=== PATIENT | female | born 2000 | race Caucasian/White ===

== ENCOUNTER 2022-10-28 05:42 | Emergency (ER) | payer OTHER, MEDICAID, SELFPAY ==
--- NOTE | 2022-10-28 05:48 | ED_ITS ---
HPI - General Adult General Chief complaint: Dental/Oral Stated complaint: teeth absecess in mouth Time Seen by Provider: 10/28/22 05:48 Source: patient Mode of arrival: Ambulatory Limitations: no limitations History of Present Illness HPI narrative: 22-year-old female who is here for evaluation of which she states is a left- sided dental abscess. States she started noticing the swelling unless side of her face a couple days ago. Overnight she did take some leftover Keflex that she had at home. No problems swallowing. No problems breathing. Related Data Home Medications Medication Instructions Recorded Confirmed DM HYDROBROM/PSE HCL (#ROBITUSSIN ##0 12/16/10 PEDIATRIC COUGH & COLD 7.5 MG/5 M) Previous Rx's Medication Instructions Recorded clindamycin HCl 300 mg capsule 300 mg PO Q6H 7 days #28 caps 10/28/22 Allergies Allergy/AdvReac Type Severity Reaction Status Date / Time Penicillins Allergy Verified 10/28/22 05:55 Review of Systems Constitutional Constitutional: Reports system reviewed and no additional complaints, except as documented ENT Ears, Nose, Mouth, and Throat: Reports system reviewed and no additional compl aints, except as documented Respiratory Respiratory: Reports system reviewed and no additional complaints, except as documented Integumentary/Breasts Skin/Breast: Reports system reviewed and no additional complaints, except as documented Exam Initial Vital Signs Initial Vital Signs: Vital Signs Pulse Rate 92 H 10/28/22 05:50 Blood Pressure 109/68 10/28/22 05:50 Pulse Oximetry 100 10/28/22 05:50 HENMT Mouth: oral mucosae normal Teeth and gingiva: poor dentition Throat: posterior oropharynx normal Neck Other: Moderate swelling left-sided mandibular region. Skin Other: No redness or erythema over the swelling the left-sided mandibular region. Course Orders Ordered: Discontinued Medications Clindamycin HCl (Clindamycin 150 Mg Capsule) 300 mg PO NOW ONE Stop: 10/28/22 05:53 Vital Signs Vital signs: Vital Signs - 8 hr 10/28/22 05:51 10/28/22 05:50 10/28/22 05:50 Temperature 98 F Pulse Rate 85 92 H Respiratory Rate 18 Blood Pressure 109/68 109/68 Pulse Oximetry 100 100 Oxygen Delivery Method Room Air Medical Decision Making [facility] Narrative Medical decision making narrative: Patient has a physical exam that is consistent with a dental abscess. There is no defined abscess seen intraoral that would be amenable to drainage here in the ER. No respiratory distress. Will place on clindamycin as she has an allergy to penicillin. Was given the 1st dose here in the ER and a prescription was sent to the pharmacy of her choice. She was informed that she does need to follow-up with a dentist for definitive treatment. Discharge Plan Departure Patient Disposition: Home Clinical Impression: Dental abscess Instructions: Tooth Abscess Prescriptions: New clindamycin HCl 300 mg capsule 300 mg PO Q6H 7 Days Qty: 28 0RF No Action DM HYDROBROM/PSE HCL (#ROBITUSSIN PEDIATRIC COUGH & COLD 7.5 MG/5 M) Qty: 0 Stand Alone Forms: Patient Portal/API
[2022-10-28 05:50] VITALS: BP 109/68; PULSE 92; O2SAT 100
[2022-10-28 05:51] VITALS: BP 109/68; PULSE 85; RESP 18; TEMP 36.6; O2SAT 100
[2022-10-28 05:52] VITALS: BMI 23.8
[2022-10-28] MEDS: CLINDAMYCIN 150 MG CAPSULE 300 MG PO (05:56)
== END 2022-10-28 05:57 | disposition home or self-care (01) ==
PROVIDERS: Emergency Provider Emergency Medicine
DX: K04.7 Periapical abscess without sinus (principal)
CPT/HCPCS: 99283

== ENCOUNTER 2022-11-12 07:16 | Emergency (ER) | payer OTHER, MEDICAID, SELFPAY ==
--- NOTE | 2022-11-12 07:22 | ED.GENADULT ---
HPI - General Adult General Chief complaint: Urogenital-Female Stated complaint: possible bladder infection Time Seen by Provider: 11/12/22 07:18 History of Present Illness HPI narrative: 22-year-old female sexually active smoker with no chronic medical history presents with a chief complaint dysuria, frequency and urgency as well as some lower pelvic discomfort for the past few days. She has a single partner that she is been with for upwards of 1 month but does state that prior to engaging in sexual contact with her he had relatively recently had some type of sexually transmitted illness. She denies any vaginal bleeding or discharge. She denies fever or chills. She denies any pain in her back and has had no nausea or vomiting. Related Data Home Medications Medication Instructions Recorded Confirmed DM HYDROBROM/PSE HCL (#ROBITUSSIN ##0 12/16/10 PEDIATRIC COUGH & COLD 7.5 MG/5 M) Previous Rx's Medication Instructions Recorded cephalexin 500 mg capsule 500 mg PO BID #10 caps 11/12/22 doxycycline hyclate 100 mg tablet 100 mg PO BID #28 tabs 11/12/22 metronidazole 500 mg tablet 500 mg PO BID 14 days #28 tabs 11/12/22 Allergies Allergy/AdvReac Type Severity Reaction Status Date / Time Penicillins Allergy Verified 10/28/22 05:55 Review of Systems Review of Systems Narrative: GENERAL: Denies chills, fatigue, malaise, fever, sweats. HEENT: Denies sinus pain, ear pain, sore throat, difficulty swallowing, dizziness. RESPIRATORY: Denies dyspnea, cough, wheezing, hemoptysis, sputum. CARDIOVASCULAR: Denies chest pain, palpitations, orthopnea, edema, GASTROINTESTINAL: Denies nausea, vomiting, abdominal pain, diarrhea, constipation, melena. : See HPI MUSCULOSKELETAL: denies weakness, joint pain, or bony pain SKIN: Denies rash, skin lesions, or other NEUROLOGIC: Denies weakness, headache, numbness, change in speech, confusion, seizures, incoordination. PSYCHIATRIC: No concerning psychosocial issues. 12 point review of systems is negative except for those stated above Patient History Social History Smoking Status: Current every day smoker Exam Narrative Exam Narrative: GENERAL: [22] year old patient appears stated age. Well-developed patient, in mild distress. HEAD: Atraumatic. Normocephalic. EYES: Pupils equal round and reactive. Extraocular motions intact. No scleral icterus. No injection or drainage. ENT: Nose without bleeding, purulent drainage. Throat without erythema, tonsillar hypertrophy or exudate. Airway patent. NECK: Trachea midline. Non tender CARDIOVASCULAR: Regular rate and rhythm without murmurs, gallops, or rubs. RESPIRATORY: Clear to auscultation. Breath sounds equal bilaterally. No wheezes, rales, or rhonchi. GASTROINTESTINAL: Abdomen soft, mild suprapubic tenderness nondistended. PELVIC: EXTREMITIES: No edema or joint tenderness. BACK: Nontender without deformity or crepitance. No flank tenderness. NEURO: AOx3. SKIN: No rash or erythema of visible areas Initial Vital Signs Initial Vital Signs: Vital Signs Temperature 98.2 F 11/12/22 07:25 Pulse Rate 96 H 11/12/22 07:25 Respiratory Rate 18 11/12/22 07:25 Blood Pressure 117/75 11/12/22 07:25 Pulse Oximetry 100 11/12/22 07:25 Oxygen Delivery Method Room Air 11/12/22 07:25 Course Orders Ordered: ED Orders 11/12/22 07:41 Chlamydia Gonorrhea PCR -URINE Stat Genital Culture Stat Urine Culture Stat Urine Microscopic Stat Wet Prep Tric BV Jocelin Stat Discontinued Medications Ceftriaxone Sodium (Ceftriaxone 1,000 Mg Vial) 500 mg IM NOW ONE Stop: 11/12/22 07:52 Last Admin: 11/12/22 08:22 Dose: 500 mg Documented By: XUAN Lidocaine HCl (Lidocaine 1% (Pf) 5 Ml) 2.1 ml INJ NOW ONE Stop: 11/12/22 07:52 Last Admin: 11/12/22 08:23 Dose: 2.1 ml Documented By: XUAN Vital Signs Vital signs: Vital Signs - 8 hr 11/12/22 07:25 11/12/22 08:30 Temperature 98.2 F Pulse Rate 96 H 89 Respiratory Rate 18 18 Blood Pressure 117/75 122/68 Pulse Oximetry 100 100 Oxygen Delivery Method Room Air Room Air Medical Decision Making Lab Data Labs: Lab Results 11/12/22 11/12/22 Range/Units 07:41 07:41 Urine RBC None seen (0-5/HPF) Urine WBC 5-10/hpf H (0-5/HPF) Ur Squamous Epith Cells 5-10 /hpf H (0-5/HPF) Urine Bacteria Many (>30) H (None) Ur Chlamydia DNA (PCR) Not detected N gonorrhoeae DNA (PCR) Not detected Point of Care Testing Test Results Negative Urine Dip Bedside Urine Glucose Negative Bedside Urine Bilirubin - Negative Bedside Urine Ketone - Negative Urine Specific Superior 1.030 Bedside Urine Occult Blood - Negative Bedside Urine pH 6.0 Bedside Urine Protein - Negative Bedside Urine Urobilinogen - Negative Bedside Urine Nitrite + Positive Bedside Urine Leukocytes +/- 15 Esterase Point of care testing: Point of Care Testing Test Results Negative Urine Dip Bedside Urine Glucose Negative Bedside Urine Bilirubin - Negative Bedside Urine Ketone - Negative Urine Specific Superior 1.030 Bedside Urine Occult Blood - Negative Bedside Urine pH 6.0 Bedside Urine Protein - Negative Bedside Urine Urobilinogen - Negative Bedside Urine Nitrite + Positive Bedside Urine Leukocytes +/- 15 Esterase MDM Narrative Medical decision making narrative: [22] year old patient presents with dysuria, frequency and vaginal pain Multiple etiologies for patient's symptoms considered including, but not limited to: [Urinary tract infection versus STD versus PID versus other] Prior Charts reviewed in our EMR Primary Historian: patient Labs reviewed and interpreted by myself: Urine subtle suggestion of UTI, consistent with patient's complaints, pelvic swabs pending Patient with dysuria and some lower pelvic discomfort is noted to have minimal discharge on exam, findings consistent with PID. Patient given Rocephin and department and prescription sent to her pharmacy of choice. Findings and discharge diagnosis discussed with patient/family followed by verbalization of understanding Return precautions discussed with patient/family whom verbalize understanding of diagnosis and plan Discharge Plan Departure Patient Disposition: Home Clinical Impression: Urinary tract infection, Acute pelvic inflammatory disease (PID) Instructions: DI for Pelvic Inflammatory Disease (PID), DI for Urinary Tract Infection (UTI) Activity Restrictions/Additional Instructions: *You have been diagnosed with [urinary tract infection and possible early pelvic inflammatory disease] *What to do: *Please continue to take your regular medications as directed. [ x] New medication prescriptions sent to your pharmacy: [ [facility]] [ ] New medication written as a paper prescription [ ] No new medications given *Please follow up with your primary care provider in 2-3 days, call for an appointment. Let them know you were seen in the Emergency Department and that we ask that you be seen in follow up. We will electronically transmit a record of today's note if your PCP is in our system *If you do not have a primary care provider please contact the [facility] Resource line at [phone]. They will ask some questions about your medical history and help get you set up with a doctor in the community. *Return to Emergency Department if you should have any new, worsening or concerning symptoms, such as [fever greater than 101 F, shaking chills, worsening pain, persistent vomiting or other bothersome symptoms] Prescriptions: New cephalexin 500 mg capsule 500 mg PO BID Qty: 10 0RF doxycycline hyclate 100 mg tablet 100 mg PO BID Qty: 28 0RF metronidazole 500 mg tablet 500 mg PO BID 14 Days Qty: 28 0RF No Action DM HYDROBROM/PSE HCL (#ROBITUSSIN PEDIATRIC COUGH & COLD 7.5 MG/5 M) Qty: 0 Stand Alone Forms: Patient Portal/API
[2022-11-12 07:25] VITALS: BP 117/75; PULSE 96; RESP 18; TEMP 36.8; O2SAT 100; BMI 21.9
[2022-11-12 08:18] LABS: Bacteria Urine Many (>30); RBC Urine None Seen (0-5/HPF); Squamous Epithelial Cell Urine 5-10 /HPF (0-5/HPF); WBC Urine 5-10/HPF (0-5/HPF)
[2022-11-12] MEDS: cefTRIAXone 1,000 MG VIAL 500 MG IM (08:22)
[2022-11-12] MEDS: LIDOCAINE 1% (PF) 5 ML 2.1 ML INJ (08:23)
[2022-11-12 08:30] VITALS: BP 122/68; PULSE 89; RESP 18; O2SAT 100
[2022-11-12 09:39] LABS: Urine N gonorrhoeae NOT DETECTED
[2022-11-12 09:43] LABS: Urine Chlamydia NOT DETECTED
== END 2022-11-12 08:31 | disposition home or self-care (01) ==
PROVIDERS: Emergency Provider Emergency Medicine
DX: N39.0 Urinary tract infection, site not specified (principal); N73.9 Female pelvic inflammatory disease, unspecified
CPT/HCPCS: 81003; 81015; 81025; 87070; 87077; 87086; 87147; 87186; 87205; 87210; 87252; 87491; 87591; 96372; 99283; 99284; J0696

== ENCOUNTER 2022-11-18 01:35 | Emergency (ER) | payer OTHER, MEDICAID, SELFPAY ==
[2022-11-18 01:44] VITALS: BP 125/80; PULSE 82; RESP 16; TEMP 36.6; O2SAT 100; BMI 22.8
--- NOTE | 2022-11-18 01:48 | ED.GENADULT ---
HPI - General Adult General Chief complaint: Abdominal Pain Stated complaint: abd pain Time Seen by Provider: 11/18/22 01:39 Source: patient Mode of arrival: Ambulatory History of Present Illness HPI narrative: Patient is a 22-year-old female is here for evaluation of abdominal pain. She was seen here in the emergency department a couple days ago. She was diagnosed with a urinary tract infection and PID. She was treated for the PID. Was sent home with antibiotics for the urinary tract infection. Review of the medical record shows that her cultures were negative except for clue cells. She is on metronidazole for this as well. Her GC and chlamydia were negative. She returns to the emergency department today stating that she is continued to have some lower abdominal pain. It has been going on for at least a week and a half if not a little longer. She is not having any vaginal bleeding. No diarrhea. No vomiting. No fevers. Related Data Home Medications Medication Instructions Recorded Confirmed DM HYDROBROM/PSE HCL (#ROBITUSSIN ##0 12/16/10 PEDIATRIC COUGH & COLD 7.5 MG/5 M) Previous Rx's Medication Instructions Recorded cephalexin 500 mg capsule 500 mg PO BID #10 caps 11/12/22 doxycycline hyclate 100 mg tablet 100 mg PO BID #28 tabs 11/12/22 metronidazole 500 mg tablet 500 mg PO BID 14 days #28 tabs 11/12/22 Allergies Allergy/AdvReac Type Severity Reaction Status Date / Time Penicillins Allergy Verified 11/18/22 01:50 Review of Systems Constitutional Constitutional: Reports system reviewed and no additional complaints, except as documented Gastrointestinal Gastrointestinal: Reports system reviewed and no additional complaints, except as documented Genitourinary Genitourinary: Reports system reviewed and no additional complaints, except as documented Integumentary/Breasts Skin/Breast: Reports system reviewed and no additional complaints, except as documented Neurologic Neurologic: Reports system reviewed and no additional complaints, except as documented Patient History Social History Smoking Status: Current every day smoker Smoking Status: Current every day smoker tobacco type: cigarettes alcohol intake frequency: other Substance Use Type: opiates, methamphetamine and other Exam Initial Vital Signs Initial Vital Signs: Vital Signs Temperature 97.9 F 11/18/22 01:44 Pulse Rate 82 11/18/22 01:44 Respiratory Rate 16 11/18/22 01:44 Blood Pressure 125/80 11/18/22 01:44 Pulse Oximetry 100 11/18/22 01:44 Oxygen Delivery Method Room Air 11/18/22 01:44 Resp Effort & Inspection: normal respiratory effort Auscultation: clear to auscultation bilaterally Cardio Rate: regular rate Rhythm: regular rhythm GI Inspection: normal to inspection and non-distended Palpation: soft, No firm, No guarding and No tender Neuro General: patient alert, patient awake, patient oriented x3 and moves all extremities Extrem General: capillary refill normal Course Orders Ordered: ED Orders 11/18/22 01:48 CT abdomen pelvis w con Stat Complete Blood Count AUTO DIFF Stat Comprehensive Metabolic Panel Stat Lipase Stat Test Serum,Qual Stat Vital Signs Vital signs: Vital Signs - 8 hr 11/18/22 01:44 Temperature 97.9 F Pulse Rate 82 Respiratory Rate 16 Blood Pressure 125/80 Pulse Oximetry 100 Oxygen Delivery Method Room Air Medical Decision Making Medical Records Medical records reviewed: Yes I reviewed the patient's medical records. [facility] Narrative Medical decision making narrative: Patient has a very benign abdominal exam. Is soft. Does have some generalized tenderness. Is currently on antibiotics for her urinary tract infection. She was appropriately treated for PID. She is also on metronidazole. Given the fact that this was her 2nd visit and that she is at a IV drug abuser I did feel that doing some labs and obtaining a CT scan would be of some benefit however prior to obtaining any blood work the patient decided not to stay in the emergency department for any further evaluation. I do feel based on her exam today that I have a low suspicion for an acute intra-abdominal surgical pathology such as appendicitis. I have low suspicion for bowel obstruction. Given the location of her pain I also have very low suspicion for tubo-ovarian abscess also this is supported by the fact that her gonorrhea and chlamydia in the rest of her cultures were negative as well. Advised the patient that if she would like to return to the emergency department for further evaluation she could do so. She was given return precautions. She expressed understanding and agreement. Discharge Plan Departure Patient Disposition: Home Clinical Impression: Abdominal pain Instructions: DI for Abdominal Pain-Adult Activity Restrictions/Additional Instructions: I do recommend that you continue to take all of your antibiotics as directed. You did opt to leave before we do any blood or did any sort of CT scan. If you change your mind and would like to return to the emergency department for further evaluation feel free to do so. Prescriptions: No Action DM HYDROBROM/PSE HCL (#ROBITUSSIN PEDIATRIC COUGH & COLD 7.5 MG/5 M) Qty: 0 cephalexin 500 mg capsule 500 mg PO BID Qty: 10 0RF doxycycline hyclate 100 mg tablet 100 mg PO BID Qty: 28 0RF metronidazole 500 mg tablet 500 mg PO BID 14 Days Qty: 28 0RF Stand Alone Forms: Patient Portal/API
== END 2022-11-18 02:16 | disposition home or self-care (01) ==
PROVIDERS: Emergency Provider Emergency Medicine
DX: R10.9 Unspecified abdominal pain (principal)
CPT/HCPCS: 99281

== ENCOUNTER 2023-01-27 06:14 | Emergency (ER) | payer OTHER, MEDICAID, SELFPAY ==
[2023-01-27 06:22] VITALS: BP 119/67; PULSE 101; O2SAT 100
--- NOTE | 2023-01-27 06:24 | DI.US.S_ITS ---
PROCEDURE: US OB <= 14 WEEKS FETUS INDICATIONS: LEFT ADNEXAL PAIN OUTSIDE/PRIOR DATING DATA: Last menstrual period (LMP): Unknown. LMP-based estimated date of delivery (KANDY): Unknown First dating scan (date and location): 01/27/2023 Estimated date of delivery (KANDY) from first dating scan: 09/08/2023. The calculations are made using the ultrasound KANDY of 09/08/2023. TECHNIQUE: Real-time scanning was performed of the fetus and maternal pelvic organs, with image documentation. Endovaginal scanning was also performed to better visualize the fetus and maternal ovaries. COMPARISON: [facility], US, US OB < 14 WEEKS + OB TRANSVAG, 01/06/2023, 11:55. [facility], US, US OB < 14 WEEKS + OB TRANSVAG, 01/11/2023, 14:27. [facility], CT, CT KUB, 11/16/2021, 3:12. FINDINGS: Embryo: Saticoy-rump length measuring 1.6 cm corresponding to gestational age 8 weeks 0 days. Heart rate: 165 bpm A yolk sac is present. Maternal organs: Left ovarian echogenic mass measuring 3 x 2.9 x 1.6 cm. There is internal vascularity. Several anechoic right ovarian cysts. A larger cyst measuring 3.5 x 3.1 x 2.7 cm. Cervix is closed. IMPRESSION: 1. Quesaad living intrauterine at 8 weeks 0 days based on today's crown rump length. heart rate 165 bpm. 2. No perigestational hemorrhage. 3. Left ovarian dermoid cyst measuring 3 cm is again seen. 4. Several anechoic right ovarian cyst. A larger benign right ovarian cyst measuring 3.5 cm. We strive to produce accurate, complete, and clear reports of imaging services. To assist us in improving patient care, this report was composed using standard report templates and voice recognition software. Therefore, it may contain abnormal punctuation, insertions and/or omissions. Occasional wrong-word or sound-alike substitutions may occur. Though we review the report and make efforts to correct it, we do recommend that the report be read carefully in proper context to recognize any text inaccuracies. Dictated by: Trever Rodriguez M.D. on 01/27/2023 at 8:27 Approved by: Trever Rodriguez M.D. on 01/27/2023 at 8:35
[2023-01-27 06:28] VITALS: BP 119/67; PULSE 97; RESP 17; TEMP 36.7; O2SAT 99; BMI 23.6
--- NOTE | 2023-01-27 06:29 | ED.GENADULT ---
HPI - General Adult <Steve Anaya DO - Last Filed: 01/27/23 18:08> General Chief complaint: Abdominal Pain Stated complaint: sharp pain in abd Time Seen by Provider: 01/27/23 06:19 Source: patient Mode of arrival: Ambulatory Limitations: no limitations History of Present Illness HPI narrative: 22-year-old female who states she is . She does not know how far along she is. She is here for evaluation of left-sided abdomen/flank pain. Started last evening. No vaginal bleeding. No vomiting. She had a urinary tract infection a couple months ago. She does not know if whether or not the infection completely was treated. No fevers. Has not tried anything for the symptoms prior to arrival. Related Data Home Medications Medication Instructions Recorded Confirmed DM HYDROBROM/PSE HCL (#ROBITUSSIN ##0 12/16/10 PEDIATRIC COUGH & COLD 7.5 MG/5 M) Previous Rx's Medication Instructions Recorded cephalexin 500 mg capsule 500 mg PO BID #10 caps 11/12/22 doxycycline hyclate 100 mg tablet 100 mg PO BID #28 tabs 11/12/22 Allergies Allergy/AdvReac Type Severity Reaction Status Date / Time Penicillins Allergy Verified 11/18/22 01:50 Review of Systems <DO Cecily Suarez Last Filed: 01/27/23 18:08> Constitutional Constitutional: Reports system reviewed and no additional complaints, except as documented Cardiovascular Cardiovascular: Reports system reviewed and no additional complaints, except as documented Respiratory Respiratory: Reports system reviewed and no additional complaints, except as documented Gastrointestinal Gastrointestinal: Reports system reviewed and no additional complaints, except as documented Genitourinary Genitourinary: Reports system reviewed and no additional complaints, except as documented Integumentary/Breasts Skin/Breast: Reports system reviewed and no additional complaints, except as documented Patient History <DO Cecily Suarez Last Filed: 01/27/23 18:08> Social History Smoking Status: Current every day smoker Smoking Status: Current every day smoker tobacco type: cigarettes alcohol intake frequency: other Substance Use Type: opiates, methamphetamine and other Exam <DO Cecily Suarez Last Filed: 01/27/23 18:08> Initial Vital Signs Initial Vital Signs: Vital Signs Pulse Rate 101 H 01/27/23 06:22 Blood Pressure 119/67 01/27/23 06:22 Pulse Oximetry 100 01/27/23 06:22 Oxygen Delivery Method Room Air 01/27/23 06:22 HENMT Head: normal to inspection Resp Effort & Inspection: normal respiratory effort Auscultation: clear to auscultation bilaterally Cardio Rate: regular rate Rhythm: regular rhythm GI Inspection: normal to inspection and non-distended Palpation: soft and tender (Left adnexa) Skin General: no rashes or lesions noted Extrem General: capillary refill normal <Gael Rodrigues DO - Last Filed: 01/27/23 17:08> Initial Vital Signs Initial Vital Signs: Vital Signs Pulse Rate 101 H 01/27/23 06:22 Blood Pressure 119/67 01/27/23 06:22 Pulse Oximetry 100 01/27/23 06:22 Oxygen Delivery Method Room Air 01/27/23 06:22 Course <Steve Anaya DO - Last Filed: 01/27/23 18:08> Orders Ordered: ED Orders 01/27/23 06:24 US OB <= 14 weeks fetus Stat Complete Blood Count AUTO DIFF Stat Comprehensive Metabolic Panel Stat HCG Quantitative /Beta subunit Stat 01/27/23 06:25 ABO RH Type Stat Lipase Stat Vital Signs Vital signs: Vital Signs - 8 hr 01/27/23 06:28 01/27/23 06:22 01/27/23 06:22 Temperature 98.1 F Pulse Rate 97 H 101 H Respiratory Rate 17 Blood Pressure 119/67 119/67 Pulse Oximetry 99 100 Oxygen Delivery Method Room Air Room Air <DO Cecily Dhaliwal Last Filed: 01/27/23 17:08> Orders Ordered: ED Orders 01/27/23 06:24 US OB <= 14 weeks fetus Stat Complete Blood Count AUTO DIFF Stat Comprehensive Metabolic Panel Stat HCG Quantitative /Beta subunit Stat 01/27/23 06:25 ABO RH Type Stat Lipase Stat Vital Signs Vital signs: Vital Signs - 8 hr 01/27/23 06:28 01/27/23 06:22 01/27/23 06:22 Temperature 98.1 F Pulse Rate 97 H 101 H Respiratory Rate 17 Blood Pressure 119/67 119/67 Pulse Oximetry 99 100 Oxygen Delivery Method Room Air Room Air Medical Decision Making <DO Cecily Suarez Last Filed: 01/27/23 18:08> Lab Data Labs: Point of Care Testing Test Results Positive Urine Dip Bedside Urine Glucose Negative Bedside Urine Bilirubin - Negative Bedside Urine Ketone - Negative Urine Specific [place] 1.030 Bedside Urine Occult Blood - Negative Bedside Urine pH 6 Bedside Urine Protein - Negative Bedside Urine Urobilinogen - Negative Bedside Urine Nitrite - Negative Bedside Urine Leukocytes - Negative Esterase Point of care testing: Point of Care Testing Test Results Positive Urine Dip Bedside Urine Glucose Negative Bedside Urine Bilirubin - Negative Bedside Urine Ketone - Negative Urine Specific [place] 1.030 Bedside Urine Occult Blood - Negative Bedside Urine pH 6 Bedside Urine Protein - Negative Bedside Urine Urobilinogen - Negative Bedside Urine Nitrite - Negative Bedside Urine Leukocytes - Negative Esterase [facility] Narrative Medical decision making narrative: Patient states she is . Unknown dates. Labs and ultrasound ordered. Has a relatively benign exam with left-sided abdominal/adnexal tenderness. Care turned over to Dr. Rodrigues to follow-up and disposition. <Gael Rodrigues, DO - Last Filed: 01/27/23 17:08> Lab Data Labs: Point of Care Testing Test Results Positive Urine Dip Bedside Urine Glucose Negative Bedside Urine Bilirubin - Negative Bedside Urine Ketone - Negative Urine Specific [place] 1.030 Bedside Urine Occult Blood - Negative Bedside Urine pH 6 Bedside Urine Protein - Negative Bedside Urine Urobilinogen - Negative Bedside Urine Nitrite - Negative Bedside Urine Leukocytes - Negative Esterase Point of care testing: Point of Care Testing Test Results Positive Urine Dip Bedside Urine Glucose Negative Bedside Urine Bilirubin - Negative Bedside Urine Ketone - Negative Urine Specific [place] 1.030 Bedside Urine Occult Blood - Negative Bedside Urine pH 6 Bedside Urine Protein - Negative Bedside Urine Urobilinogen - Negative Bedside Urine Nitrite - Negative Bedside Urine Leukocytes - Negative Esterase [facility] Narrative Medical decision making narrative: Patient states she is . Unknown dates. Labs and ultrasound ordered. Has a relatively benign exam with left-sided abdominal/adnexal tenderness. Care turned over to Dr. Rodrigues to follow-up and disposition. [0700] (Ravi) Patient received in sign out from [Jaclyn]. I have reviewed the clinical course and Patient has left prior to my ability to independently examine her US / labs pending. Discharge Plan Departure Patient Disposition: Left Against Medical Advice Clinical Impression: Left against medical advice Prescriptions: No Action DM HYDROBROM/PSE HCL (#ROBITUSSIN PEDIATRIC COUGH & COLD 7.5 MG/5 M) Qty: 0 cephalexin 500 mg capsule 500 mg PO BID Qty: 10 0RF doxycycline hyclate 100 mg tablet 100 mg PO BID Qty: 28 0RF Stand Alone Forms: Against Medical Advice
== END 2023-01-27 07:20 | disposition left against medical advice (07) ==
PROVIDERS: Emergency Provider Emergency Medicine
DX: O26.899 Other specified pregnancy related conditions, unspecified trimester (principal); R10.9 Unspecified abdominal pain; Z53.29 Procedure and treatment not carried out because of patient's decision for other reasons; Z3A.00 Weeks of gestation of pregnancy not specified
CPT/HCPCS: 76801; 76817; 81003; 81025; 93975; 99283

== ENCOUNTER 2023-02-01 21:21 | Emergency (ER) | payer OTHER, MEDICAID, SELFPAY ==
[2023-02-01 21:25] VITALS: BP 100/74; PULSE 92; RESP 18; TEMP 36.6; O2SAT 97; BMI 23.2
--- NOTE | 2023-02-01 22:09 | ED_ITS ---
HPI - Recheck/Abnormal Lab/Rx General Chief Complaint: Recheck/Abnormal Lab/Rx Stated Complaint: needs help with meds, 9 weeks Time Seen by Provider: 02/01/23 22:04 Source: patient Mode of arrival: Ambulatory History of Present Illness HPI narrative: Patient is a 22-year-old female with history of opiate abuse presenting today for Subutex. She reports that she is currently about 9 weeks . She is a . She found out she was in [place] [facility] she was actually seen here on January 27 she had an ultrasound that showed an IUP she had blood work but then left prior to results given. No evidence of UTI blood work is overall reassuring. Today she is absolutely no abdominal pain or vaginal bleeding. She is on Subutex through an injection facility. She apparently has missed 3 appointments she missed 1 today and admits to using fentanyl she was instructed to come to the ED. she is here with boyfriend and mom. Mom reports that they are expected to receive a call or making calls tomorrow for treatment center. Related Data Home Medications Medication Instructions Recorded Confirmed DM HYDROBROM/PSE HCL (#ROBITUSSIN ##0 12/16/10 PEDIATRIC COUGH & COLD 7.5 MG/5 M) Previous Rx's Medication Instructions Recorded cephalexin 500 mg capsule 500 mg PO BID #10 caps 11/12/22 doxycycline hyclate 100 mg tablet 100 mg PO BID #28 tabs 11/12/22 Allergies Allergy/AdvReac Type Severity Reaction Status Date / Time Penicillins Allergy Verified 11/18/22 01:50 Patient History Social History Smoking Status: Current every day smoker Smoking Status: Current every day smoker tobacco type: cigarettes alcohol intake frequency: other Substance Use Type: opiates, methamphetamine and other Exam Initial Vital Signs Initial Vital Signs: Vital Signs Temperature 98 F 02/01/23 21:25 Pulse Rate 92 H 02/01/23 21:25 Respiratory Rate 18 02/01/23 21:25 Blood Pressure 100/74 02/01/23 21:25 Pulse Oximetry 97 02/01/23 21:25 Oxygen Delivery Method Room Air 02/01/23 21:25 GENERAL: Disheveled poorly groomed CARDIOVASCULAR: peripheral pulses in tact, cap refill <2 sec RESPIRATORY: No respiratory distress, speaks in full sentences without difficulty EXTREMITIES: Normal range of motion, no clubbing or edema. Neurovascularly intact NEUROLOGICAL: Cranial nerves II through XII grossly intact. Normal gait and speech. SKIN: Warm, dry, no petechiae, no rashes or lesions. Course Vital Signs Vital signs: Vital Signs - 8 hr 02/01/23 21:25 Temperature 98 F Pulse Rate 92 H Respiratory Rate 18 Blood Pressure 100/74 Pulse Oximetry 97 Oxygen Delivery Method Room Air MDM - Recheck/Abnormal Lab/Rx MDM Narrative Medical decision making narrative: Unfortunately we do not carry Subutex, not able to give her her dose. She has missed multiple appointments at the place where she is supposed to receive it. Strongly encourage her to go to a treatment center. Not having any abdominal pain vaginal bleeding or any issue related to her current . Does have a confirmed IUP. Discharge Plan Departure Patient Disposition: Home Clinical Impression: Opiate addiction, First trimester Instructions: DI for Opioid Use Disorder, DI for -- Discomforts and Remedies Activity Restrictions/Additional Instructions: *You have been diagnosed with with opiate addiction *What to do: I strongly encourage you to go to treatment. Avoid opiates illicit drugs, smoking alcohol marijuana, methamphetamine caffeine *Continue to take medications as directed vitamins daily *Follow up with your primary care provider in 2-3 days or call [phone] *Return to ER if you should have abdominal pain vaginal bleeding dizziness lightheadedness [or] any new, worsening or concerning symptoms Prescriptions: No Action DM HYDROBROM/PSE HCL (#ROBITUSSIN PEDIATRIC COUGH & COLD 7.5 MG/5 M) Qty: 0 cephalexin 500 mg capsule 500 mg PO BID Qty: 10 0RF doxycycline hyclate 100 mg tablet 100 mg PO BID Qty: 28 0RF Stand Alone Forms: Patient Portal/API
== END 2023-02-01 22:19 | disposition home or self-care (01) ==
PROVIDERS: Emergency Provider Emergency Medicine
DX: O99.321 Drug use complicating pregnancy, first trimester (principal); F11.20 Opioid dependence, uncomplicated; Z3A.09 9 weeks gestation of pregnancy
CPT/HCPCS: 99281; 99282

== ENCOUNTER 2023-04-08 11:33 | Emergency (ER) | payer OTHER, MEDICAID, SELFPAY ==
[2023-04-08 11:43] VITALS: BP 111/60; PULSE 95; RESP 20; TEMP 36.8; O2SAT 98; BMI 23.3
--- NOTE | 2023-04-08 12:23 | PC.NURSE ---
L&D RN reports that heart tones are present and within normal limits.
--- NOTE | 2023-04-08 12:25 | DI.US.S_ITS ---
PROCEDURE: US OB LIMITED INDICATIONS: KICKED IN ABDOMEN 12 HOURS AGO OUTSIDE/PRIOR DATING DATA: Last menstrual period (LMP): Unknown. LMP-based estimated date of delivery (KANDY): Not applicable. First dating scan (date and location): 01/27/2023. Estimated date of delivery (KANDY) from first dating scan: 09/08/2023. TECHNIQUE: Real-time scanning was performed of the fetus, with image documentation. Endovaginal scanning: No COMPARISON: None. FINDINGS: A single living intrauterine gestation is present. Presentation: Vertex. Placenta: Placental position is anterior, without previa. heart rate: 149 beats per minute. Maternal cervical canal: 3.9 cm long. Normal lower limit is 2.5 cm. Clinically estimated gestational age: 18 weeks 1 day IMPRESSION: 1. Single living intrauterine gestation. 2. No evidence of abruption. Dictated by: Bill Robert M.D. on 04/08/2023 at 13:34 Approved by: Bill Robert M.D. on 04/08/2023 at 13:35
--- NOTE | 2023-04-08 12:29 | PC.NURSE ---
This OB-RN at pts. bedside obtaining FHTs. Fhts 140-150, normal rhythm, no audible accelerations or decelerations heard. Auscultated for 190sec. Pt denies any vaginal bleeding or abdominal pain at this time. ER, RN notified.
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
[2023-04-08 14:08] LABS: Ur Creatinine Normal (Normal); Ur Specific Gravity Normal (Normal); Urine pH Normal (Normal)
[2023-04-08 14:09] LABS: UR Morphine/Opiate cutoff 300 Negative (Negative); Urine Amphetamines Positive (Negative); Urine Barbiturates Negative (Negative); Urine Benzodiazepines Negative (Negative); Urine Cocaine Negative (Negative); Urine MDMA Negative (Negative); Urine Oxycodone Negative (Negative); Urine Phencyclidine Negative (Negative); Urine Tetrahydrocannabinol Negative (Negative); Urine Tricyclic Antidepressant Negative (Negative)
[2023-04-08 14:11] LABS: Urine Methadone Negative (Negative); Urine Methamphetamines Positive (Negative)
[2023-04-08 14:17] VITALS: BP 107/63; PULSE 80; RESP 12; O2SAT 97
== END 2023-04-08 14:19 | disposition home or self-care (01) ==
PROVIDERS: Emergency Provider Emergency Medicine
DX: O26.892 Other specified pregnancy related conditions, second trimester (principal); S39.81XA Other specified injuries of abdomen, initial encounter; Y04.2XXA Assault by strike against or bumped into by another person, initial encounter; Z3A.19 19 weeks gestation of pregnancy
CPT/HCPCS: 76815; 80305; 81003; 99283; 99284

== ENCOUNTER 2023-08-18 10:23 | Emergency (ER) | payer OTHER, MEDICAID, SELFPAY ==
[2023-08-18] VITALS (14 sets, daily range): BP systolic 123–148; BP diastolic 72–99; PULSE 98–130; RESP 14–22; TEMP 36.9; O2SAT 98–100; BMI 27.1
--- NOTE | 2023-08-18 10:45 | ED_ITS ---
HPI - General Chief complaint: OB/Uterine Contractions Stated complaint: 37 wks SOB with leg swelling Time Seen by Provider: 08/18/23 10:26 History of Present Illness HPI Narrative: Patient is a 23-year-old female currently 37 weeks presenting today with lower leg swelling, she reports right greater than left. She is history of polysubstance abuse she was currently on Subutex and used fentanyl today. Denies any sort of abdominal pain no current shortness of breath. She has been seen at by OBGYN at [facility]. Currently here with boyfriend. EMS reports that initial blood pressure for them was 140/66. Current blood pressure 124/88 with a heart rate of 130. Related Data Home Medications Medication Instructions Recorded Confirmed DM HYDROBROM/PSE HCL (#ROBITUSSIN ##0 12/16/10 PEDIATRIC COUGH & COLD 7.5 MG/5 M) Previous Rx's Medication Instructions Recorded cephalexin 500 mg capsule 500 mg PO BID #10 caps 11/12/22 doxycycline hyclate 100 mg tablet 100 mg PO BID #28 tabs 11/12/22 Allergies Allergy/AdvReac Type Severity Reaction Status Date / Time Penicillins Allergy Verified 04/08/23 11:50 Exam Initial Vital Signs Initial Vital Signs: Vital Signs Pulse Rate 130 H 08/18/23 10:26 GENERAL: Alert 23-year-old female and in no acute distress. HEENT: Head atraumatic,EOMI, pupils reactive, face symmetric, moist mucous membranes CARDIOVASCULAR: Regular rate and rhythm without murmurs, rubs or gallops. RESPIRATORY: Breath sounds equal bilaterally, no wheezes rales or rhonchi. ABDOMEN: Soft, gravid nontender EXTREMITIES: Normal range of motion, no clubbing. Bilateral lower extremity edema, right greater than left Neurovascularly intact NEUROLOGICAL: Alert and oriented x4. SKIN: Warm, dry, no laceration, no petechiae, no rashes or lesions. Course Orders Ordered: ED Orders 08/18/23 10:38 Consult to GREEN BUILDING DESIGN SPECIALIST - Market Analyst Stat 08/18/23 10:42 UA Complete [Urinalysis and Microscopic] Stat Urine Drug Screen, Rapid Stat 08/18/23 10:59 US periph venous low extrem bi Stat 08/18/23 11:19 CBC Auto Diff [Complete Blood Count AUTO DIFF] Stat CMP [Comprehensive Metabolic Panel] Stat LDH [Lactate Dehydrogenase] Stat MAG [Magnesium] Stat Uric Acid Stat 08/18/23 11:28 US OB limited Stat 08/18/23 12:43 Protein Creatinine Ratio Urine Stat Vital Signs Vital signs: Vital Signs - 8 hr 08/18/23 10:26 08/18/23 10:29 08/18/23 10:30 Temperature 98.4 F Pulse Rate 130 H 130 H Respiratory Rate 14 Blood Pressure 124/88 126/91 H Pulse Oximetry 100 Oxygen Delivery Method Room Air 08/18/23 10:30 08/18/23 10:56 08/18/23 10:56 Temperature Pulse Rate 129 H 126 H Respiratory Rate 17 22 Blood Pressure 144/89 H Pulse Oximetry 100 100 Oxygen Delivery Method Room Air Room Air 08/18/23 11:00 08/18/23 11:00 08/18/23 11:30 Temperature Pulse Rate 121 H Respiratory Rate 16 Blood Pressure 135/89 123/84 Pulse Oximetry 100 Oxygen Delivery Method Room Air 08/18/23 11:30 08/18/23 12:00 08/18/23 12:00 Temperature Pulse Rate 111 H 100 H Respiratory Rate 22 Blood Pressure 124/78 Pulse Oximetry 99 99 Oxygen Delivery Method Room Air 08/18/23 12:15 08/18/23 12:30 08/18/23 12:30 Temperature Pulse Rate 113 H 103 H Respiratory Rate 17 Blood Pressure 124/83 Pulse Oximetry 99 98 Oxygen Delivery Method Room Air Room Air 08/18/23 12:45 08/18/23 12:47 08/18/23 12:47 Temperature Pulse Rate 108 H 99 H Respiratory Rate 16 Blood Pressure 141/99 H Pulse Oximetry 100 Oxygen Delivery Method Room Air 08/18/23 13:00 08/18/23 13:01 08/18/23 13:01 Temperature Pulse Rate 105 H 100 H Respiratory Rate 20 20 Blood Pressure 148/72 H Pulse Oximetry 99 99 Oxygen Delivery Method 08/18/23 13:15 Temperature Pulse Rate 98 H Respiratory Rate 21 Blood Pressure Pulse Oximetry 99 Oxygen Delivery Method MDM - OB/Uterine Contractions Lab Data 08/18/23 11:19 08/18/23 11:19 Labs: Lab Results 08/18/23 08/18/23 08/18/23 Range/Units 10:42 10:42 11:19 WBC 11.4 H (4.5-11.0) X10^3/uL RBC 3.63 L (4.0-5.2) X10^6/uL Hgb 10.4 L (12.0-16.0) g/dL Hct 30.4 L (36-46) % MCV 83.8 (80-100) fL MCH 28.7 (26-34) PG MCHC 34.2 (30-36) % RDW 12.9 (11.6-14.8) % Plt Count 252 (150-400) X10^3/uL Neut % (Auto) 81.4 H (50-75) % Lymph % (Auto) 14.2 L (25-40) % [place] % (Auto) 3.9 (3-14) % Eos % (Auto) 0.1 L (2-4) % Baso % (Auto) 0.4 (0-2) % Neut # (Auto) 9200 H (1893-2699) /uL Lymph # (Auto) 1600 (1098-5152) /uL [place] # (Auto) 400 (0-900) /uL Eos # (Auto) 0 (0-450) /uL Baso # (Auto) 0 (0-100) /uL Sodium 136 L (137-145) mmol/L Potassium 4.0 (3.4-5.1) mmol/L Chloride 108 H (98-107) mmol/L Carbon Dioxide 23 (22-32) mmol/L BUN 10 (7-17) mg/dL Creatinine 0.57 (0.52-1.04) mg/dL Estimated GFR > 60 (>60) mL/min BUN/Creatinine Ratio 17.5 (6-22) Glucose 88 (70-100) mg/dL Uric Acid 4.7 (2.5-6.2) mg/dL Calcium 8.8 (8.4-10.2) mg/dL Magnesium 1.7 (1.6-2.3) mg/dL Total Bilirubin 0.5 (0.2-1.3) mg/dL AST 29 (14-36) IU/L ALT 22 (<35) IU/L Alkaline Phosphatase 251 H (38-126) U/L Lactate Dehydrogenase 166 (120-246) U/L Total Protein 7.1 (6.3-8.2) g/dL Albumin 3.4 L (3.5-5.0) g/dL Globulin 3.7 (1.7-4.1) g/dL Albumin/Globulin Ratio 0.9 L (1.0-2.8) Urine Color Yellow Urine Appearance Sl cloudy Urine pH 7.0 Normal (4.5-8.0) Ur Specific [place] 1.020 (1.000-1.035) Urine Protein Trace H (Negative) Urine Glucose (UA) Negative (Negative) g/dL Urine Ketones Trace H (NEGATIVE) Urine Occult Blood Negative (Negative) Urine Nitrate Negative (Negative) Urine Bilirubin Negative (NEGATIVE) Urine Urobilinogen 1.0 (0.2) E.U./dL Ur Leukocyte Esterase Negative (NEGATIVE) Urine RBC 0-1/hpf (0-5/HPF) Urine WBC 0-1/hpf (0-5/HPF) Ur Squamous Epith Cells 10-30 /hpf H (0-5/HPF) Urine Bacteria Moderate (10-30) H (None) Urine Mucus 1+ H (Negative) Ur Culture Indicated? Cult not indicated Vol Urine Centrifuged 10ml (spun) U Random Total Protein (0-12) mg/dL Urine Creatinine mg/dL Protein/Creatinin Ratio GRAM/24H U Opiates 300ng/mL cut Negative (Negative) Ur Oxycodone Screen Negative (Negative) Urine Methadone Screen Negative (Negative) Ur Barbiturates Screen Negative (Negative) U Tricyclic Antidepress Negative (Negative) Ur Phencyclidine Scrn Negative (Negative) Ur Amphetamines Screen Negative (Negative) U Methamphetamines Scrn Positive H (Negative) Ur MDMA Scrn (Ecstasy) Positive H (Negative) U Benzodiazepines Scrn Negative (Negative) Urine Cocaine Screen Negative (Negative) U Marijuana (THC) Screen Negative (Negative) Urine Specific [place] Normal (Normal) Ur Creatinine Normal (Normal) 08/18/23 Range/Units 12:43 WBC (4.5-11.0) X10^3/uL RBC (4.0-5.2) X10^6/uL Hgb (12.0-16.0) g/dL Hct (36-46) % MCV (80-100) fL MCH (26-34) PG MCHC (30-36) % RDW (11.6-14.8) % Plt Count (150-400) X10^3/uL Neut % (Auto) (50-75) % Lymph % (Auto) (25-40) % [place] % (Auto) (3-14) % Eos % (Auto) (2-4) % Baso % (Auto) (0-2) % Neut # (Auto) (9254-9080) /uL Lymph # (Auto) (5703-9268) /uL [place] # (Auto) (0-900) /uL Eos # (Auto) (0-450) /uL Baso # (Auto) (0-100) /uL Sodium (137-145) mmol/L Potassium (3.4-5.1) mmol/L Chloride (98-107) mmol/L Carbon Dioxide (22-32) mmol/L BUN (7-17) mg/dL Creatinine (0.52-1.04) mg/dL Estimated GFR (>60) mL/min BUN/Creatinine Ratio (6-22) Glucose (70-100) mg/dL Uric Acid (2.5-6.2) mg/dL Calcium (8.4-10.2) mg/dL Magnesium (1.6-2.3) mg/dL Total Bilirubin (0.2-1.3) mg/dL AST (14-36) IU/L ALT (<35) IU/L Alkaline Phosphatase (38-126) U/L Lactate Dehydrogenase (120-246) U/L Total Protein (6.3-8.2) g/dL Albumin (3.5-5.0) g/dL Globulin (1.7-4.1) g/dL Albumin/Globulin Ratio (1.0-2.8) Urine Color Urine Appearance Urine pH (4.5-8.0) Ur Specific [place] (1.000-1.035) Urine Protein (Negative) Urine Glucose (UA) (Negative) g/dL Urine Ketones (NEGATIVE) Urine Occult Blood (Negative) Urine Nitrate (Negative) Urine Bilirubin (NEGATIVE) Urine Urobilinogen (0.2) E.U./dL Ur Leukocyte Esterase (NEGATIVE) Urine RBC (0-5/HPF) Urine WBC (0-5/HPF) Ur Squamous Epith Cells (0-5/HPF) Urine Bacteria (None) Urine Mucus (Negative) Ur Culture Indicated? Vol Urine Centrifuged U Random Total Protein < 5 (0-12) mg/dL Urine Creatinine 241.9 mg/dL Protein/Creatinin Ratio 0.02 GRAM/24H U Opiates 300ng/mL cut (Negative) Ur Oxycodone Screen (Negative) Urine Methadone Screen (Negative) Ur Barbiturates Screen (Negative) U Tricyclic Antidepress (Negative) Ur Phencyclidine Scrn (Negative) Ur Amphetamines Screen (Negative) U Methamphetamines Scrn (Negative) Ur MDMA Scrn (Ecstasy) (Negative) U Benzodiazepines Scrn (Negative) Urine Cocaine Screen (Negative) U Marijuana (THC) Screen (Negative) Urine Specific [place] (Normal) Ur Creatinine (Normal) Imaging Data US - OB: Radiologist's Impression: PROCEDURE: US OB LIMITED INDICATIONS: DRUG USE OUTSIDE/PRIOR DATING DATA: Last menstrual period (LMP): Unknown. LMP-based estimated date of delivery (KANDY): Unknown. First dating scan (date and location): 01/27/2023. Estimated date of delivery (KANDY) from first dating scan: 09/08/2023 The calculations are made using the working KANDY of 09/08/2023 TECHNIQUE: Real-time scanning was performed of the fetus for biophysical profile, with image documentation. Endovaginal scanning: Not performed COMPARISON: [facility], US OB LIMITED, 04/08/2023, 13:10. FINDINGS: General: A single living intrauterine gestation is present. Presentation: Breech. Placenta: Placental position is anterior, without previa. Amniotic fluid index: 9.0 cm, normal range is 5-24 cm. Single deepest vertical pocket is 4.4 cm. heart rate: 178 beats per minute. Maternal cervical canal: Not evaluated Estimated gestational age from initial scan: 39 weeks, 1 day IMPRESSION: 1. Single live intrauterine gestation with fetus in breech presentation. heart rate is 178 beats per minute and is elevated. Normal amount of amniotic fluid. ASH equals 9.0 cm. 2. Placenta location is anterior without previa. No evidence of abruption. We strive to produce accurate, complete, and clear reports of imaging services. To assist us in improving patient care, this report was composed using standard report templates and voice recognition software. Therefore, it may contain abnormal punctuation, insertions and/or omissions. Occasional wrong-word or sound-alike substitutions may occur. Though we review the report and make efforts to correct it, we do recommend that the report be read carefully in proper context to recognize any text inaccuracies. Dictated by: Toan Gordillo M.D. on 08/18/2023 at 12:41 Approved by: Toan Gordillo M.D. on 08/18/2023 at 12:43 US - DVT: Radiologist's Impression: PROCEDURE: US PERIPH VENOUS LOW EXTREM BI INDICATIONS: EDEMA TECHNIQUE: Real-time imaging, as well as color and pulse Doppler interrogation, were performed of the deep veins of both legs from the inguinal ligament to the popliteal fossa, with documentation of the visualized calf veins. COMPARISON: None. FINDINGS: Right: The common femoral, femoral, popliteal, and the visualized calf veins are normally compressible, and free of intraluminal thrombus. Color and pulse Doppler demonstrate normal phasic intravascular flow. There is normal augmentation response to distal compression maneuver. Left: The common femoral, femoral, popliteal, and the visualized calf veins are normally compressible, and free of intraluminal thrombus. Color and pulse Doppler demonstrate normal phasic intravascular flow. There is normal augmentation response to distal compression maneuver. IMPRESSION: No evidence of DVT in visualized bilateral lower extremity veins. Dictated by: Toan Gordillo M.D. on 08/18/2023 at 12:43 [facility] Narrative Medical decision making narrative: Patient 23-year-old female 37 weeks presents today with lower extremity edema and mild elevation in blood pressure. She has no abdominal pain or vaginal bleeding. Initially concerned for preeclampsia. Blood pressure does fluctuate between mildly elevated 140/60 and 120s. Blood work has been reviewed, mild leukocytosis normal liver enzymes alk-phos 251, uric acid 4.7 trace protein and urine protein creatinine ratio 0.02. Drug screen also positive for MDMA and methamphetamines Imaging reviewed ultrasound shows breech presentation and no DVT Patient concerning or mild or early preeclampsia blood pressure fluctuates. She also has trace proteins in her urine. She is certainly high risk due to polysubstance use. 12:35 Dr. Kc on-call OB updated patient's symptoms test results requests protein creatinine ratio and may follow-up with her own OBGYN 1300 Dr. Jimenez resident OB on for [facility] updated on symptoms and test results. Recommend NST here. If NST is abnormal then she would need to be transferred over to [facility], if normal can be followed up 1320 Dr. cK updated on recommendations agrees with NST and plan Discharge Plan Departure Patient Disposition: Home Clinical Impression: Leg swelling in Instructions: DI for Pre-eclampsia Activity Restrictions/Additional Instructions: Go directly to L and D for more testing if that is negative he will likely go home. Stop using drugs Need to follow-up with OB at [facility], they are aware of your visit here Return to ED if you should have abdominal pain bleeding vaginal leaking or any other new or worsening symptoms Prescriptions: No Action DM HYDROBROM/PSE HCL (#ROBITUSSIN PEDIATRIC COUGH & COLD 7.5 MG/5 M) Qty: 0 cephalexin 500 mg capsule 500 mg PO BID Qty: 10 0RF doxycycline hyclate 100 mg tablet 100 mg PO BID Qty: 28 0RF Stand Alone Forms: Patient Portal/API
--- NOTE | 2023-08-18 10:59 | DI.US.S_ITS ---
PROCEDURE: US PERIPH VENOUS LOW EXTREM BI INDICATIONS: EDEMA TECHNIQUE: Real-time imaging, as well as color and pulse Doppler interrogation, were performed of the deep veins of both legs from the inguinal ligament to the popliteal fossa, with documentation of the visualized calf veins. COMPARISON: None. FINDINGS: Right: The common femoral, femoral, popliteal, and the visualized calf veins are normally compressible, and free of intraluminal thrombus. Color and pulse Doppler demonstrate normal phasic intravascular flow. There is normal augmentation response to distal compression maneuver. Left: The common femoral, femoral, popliteal, and the visualized calf veins are normally compressible, and free of intraluminal thrombus. Color and pulse Doppler demonstrate normal phasic intravascular flow. There is normal augmentation response to distal compression maneuver. IMPRESSION: No evidence of DVT in visualized bilateral lower extremity veins. Dictated by: Toan Gordillo M.D. on 08/18/2023 at 12:43 Approved by: Toan Gordillo M.D. on 08/18/2023 at 12:47
--- NOTE | 2023-08-18 11:06 | PC.NURSE ---
Addendum entered by Jluis Mccullough R.N. 08/18/23 11:24: Pt describes occasional gasping for air due to the size of the baby and how small I am, however she denies SOB and is speaking in full sentences, ambulatory to the bathroom with no dizziness, lightheaded, or SOB. 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 She denies pain and was at the walk in clinic when they had concern for hypertension and called 9-1-1. Pt denies IV drug use the past 3 years, reports taking subutex, meth and fentanyl today. Pt's significant other at bedside.
[2023-08-18 11:16] LABS: Appearance Urine UA SL CLOUDY; Bilirubin Urine UA NEGATIVE (NEGATIVE); Color Urine UA YELLOW; Glucose Urine UA NEGATIVE (Negative); Ketones Urine UA TRACE (NEGATIVE); Leukocyte Esterase Urine UA NEGATIVE (NEGATIVE); Nitrite Urine UA NEGATIVE (Negative); Occult Blood Urine UA NEGATIVE (Negative); Protein Urine UA TRACE (Negative)
[2023-08-18 11:26] LABS: Add Manual Diff / Slide Review NO; Basophils Absolute Auto 0 /uL (0-100); Basophils Percent Auto 0.4 % (0-2); Eosinophils Absolute Auto 0 /uL (0-450); Eosinophils Percent Auto 0.1 % (2-4); Hematocrit 30.4 % (36-46); Hemoglobin 10.4 g/dL (12.0-16.0); Lymphocytes Absolute Auto 1600 /uL (1100-4500); Lymphocytes Percent Auto 14.2 % (25-40); Mean Corpuscular HGB Conc 34.2 % (30-36); Mean Corpuscular Hemoglobin 28.7 PG (26-34); Mean Corpuscular Volume 83.8 fL (80-100); Monocytes Absolute Auto 400 /uL (0-900); Monocytes Percent Auto 3.9 % (3-14); Neutrophils Absolute Auto 9200 /uL (1500-7000); Neutrophils Percent Auto 81.4 % (50-75); Platelet Count 252 X10^3/uL (150-400); Red Blood Cell Count 3.63 X10^6/uL (4.0-5.2); Red Cell Distribution Width 12.9 % (11.6-14.8); White Blood Cell Count 11.4 X10^3/uL (4.5-11.0)
[2023-08-18 11:26] LABS: RBC Urine 0-1/HPF (0-5/HPF); Urine Volume 10mL (spun); WBC Urine 0-1/HPF (0-5/HPF)
[2023-08-18 11:27] LABS: Bacteria Urine Moderate (10-30); Culture Indicated Urine Cult Not Indicated; Mucus Urine 1+ (Negative); Squamous Epithelial Cell Urine 10-30 /HPF (0-5/HPF); UR Morphine/Opiate cutoff 300 Negative (Negative); Ur Creatinine Normal (Normal); Ur Specific Gravity Normal (Normal); Urine Amphetamines Negative (Negative); Urine Cocaine Negative (Negative); Urine Methamphetamines Positive (Negative); Urine Phencyclidine Negative (Negative); Urine Tetrahydrocannabinol Negative (Negative); Urine pH Normal (Normal)
[2023-08-18 11:28] LABS: Urine Barbiturates Negative (Negative); Urine Benzodiazepines Negative (Negative); Urine MDMA Positive (Negative); Urine Methadone Negative (Negative); Urine Oxycodone Negative (Negative); Urine Tricyclic Antidepressant Negative (Negative)
--- NOTE | 2023-08-18 11:28 | DI.US.S_ITS ---
PROCEDURE: US OB LIMITED INDICATIONS: DRUG USE OUTSIDE/PRIOR DATING DATA: Last menstrual period (LMP): Unknown. LMP-based estimated date of delivery (KANDY): Unknown. First dating scan (date and location): 01/27/2023. Estimated date of delivery (KANDY) from first dating scan: 09/08/2023 The calculations are made using the working KANDY of 09/08/2023 TECHNIQUE: Real-time scanning was performed of the fetus for biophysical profile, with image documentation. Endovaginal scanning: Not performed COMPARISON: [facility], OB LIMITED, 04/08/2023, 13:10. FINDINGS: General: A single living intrauterine gestation is present. Presentation: Breech. Placenta: Placental position is anterior, without previa. Amniotic fluid index: 9.0 cm, normal range is 5-24 cm. Single deepest vertical pocket is 4.4 cm. heart rate: 178 beats per minute. Maternal cervical canal: Not evaluated Estimated gestational age from initial scan: 39 weeks, 1 day IMPRESSION: 1. Single live intrauterine gestation with fetus in breech presentation. heart rate is 178 beats per minute and is elevated. Normal amount of amniotic fluid. ASH equals 9.0 cm. 2. Placenta location is anterior without previa. No evidence of abruption. We strive to produce accurate, complete, and clear reports of imaging services. To assist us in improving patient care, this report was composed using standard report templates and voice recognition software. Therefore, it may contain abnormal punctuation, insertions and/or omissions. Occasional wrong-word or sound-alike substitutions may occur. Though we review the report and make efforts to correct it, we do recommend that the report be read carefully in proper context to recognize any text inaccuracies. Dictated by: Toan Gordillo M.D. on 08/18/2023 at 12:41 Approved by: Toan Gordillo M.D. on 08/18/2023 at 12:43
[2023-08-18 11:40] LABS: Alanine Aminotransferase 22 IU/L (<35); Albumin 3.4 g/dL (3.5-5.0); Albumin Globulin Ratio 0.9 (1.0-2.8); Alkaline Phosphatase 251 U/L (38-126); Aspartate Aminotransferase 29 IU/L (14-36); BUN Creatinine Ratio 17.5 (6-22); Bilirubin Total 0.5 mg/dL (0.2-1.3); Blood Urea Nitrogen 10 mg/dL (7-17); Calcium 8.8 mg/dL (8.4-10.2); Carbon Dioxide 23 mmol/L (22-32); Chloride 108 mmol/L (98-107); Estimated Glomerular Filt Rate > 60 mL/min (>60); Globulin 3.7 g/dL (1.7-4.1); Glucose 88 mg/dL (70-100); HEMOLYSIS < 15 (0-50); Lactate Dehydrogenase 166 U/L (120-246); Magnesium 1.7 mg/dL (1.6-2.3); Sodium 136 mmol/L (137-145); Total Protein 7.1 g/dL (6.3-8.2); Uric Acid 4.7 mg/dL (2.5-6.2)
[2023-08-18 12:53] LABS: Creatinine Urine Random 241.9 mg/dL
[2023-08-18 13:05] LABS: Protein (Total) Urine Random < 5 mg/dL (0-12); Protein Creatinine Ratio Urine 0.02 GRAM/24H
--- NOTE | 2023-08-18 13:36 | PC.NURSE ---
Pt DC'd from ED. Being sent to L&D by Dr Smith for NST. IV discontinued. pt remains in gown and taken to L&D by MARGO Wilson in wheelchair
--- NOTE | 2023-08-18 14:22 | PC.NURSE ---
Spoke to Yahaira at [facility], case # [id number]
== END 2023-08-18 13:33 | disposition home or self-care (01) ==
PROVIDERS: Family Medicine; Emergency Provider Emergency Medicine
DX: O12.03 Gestational edema, third trimester (principal); Z3A.37 37 weeks gestation of pregnancy; O26.893 Other specified pregnancy related conditions, third trimester; M79.89 Other specified soft tissue disorders; O99.333 Smoking (tobacco) complicating pregnancy, third trimester; F17.210 Nicotine dependence, cigarettes, uncomplicated; O99.323 Drug use complicating pregnancy, third trimester; F15.90 Other stimulant use, unspecified, uncomplicated
CPT/HCPCS: 36415; 59025; 76815; 80053; 80305; 81001; 82570; 83615; 83735; 84156; 84550; 85025; 93970; 99283; 99284

== ENCOUNTER 2023-08-18 13:44 | Outpatient (CLI) | payer OTHER, MEDICAID, SELFPAY | END 2023-08-18 14:45 | disposition home or self-care (01) | LOC: LABOR 15:02 → OB 08-22 09:47 | PROVIDERS: Referring Provider Obstetrics & Gynecology; Visit Provider Obstetrics & Gynecology | DX: O26.893 Other specified pregnancy related conditions, third trimester (principal); M79.89 Other specified soft tissue disorders; O99.333 Smoking (tobacco) complicating pregnancy, third trimester; F17.210 Nicotine dependence, cigarettes, uncomplicated; O99.323 Drug use complicating pregnancy, third trimester; F15.90 Other stimulant use, unspecified, uncomplicated; Z3A.37 37 weeks gestation of pregnancy | CPT/HCPCS: 59025; G0378; G0379 ==

== ENCOUNTER 2024-04-30 01:56 | Emergency (ER) | payer OTHER, MEDICAID, SELFPAY ==
[2024-04-30 02:01] VITALS: BP 125/89; PULSE 120; RESP 16; TEMP 36.6; O2SAT 100
[2024-04-30 02:05] VITALS: BMI 20.1
--- NOTE | 2024-04-30 02:08 | PC.NURSE ---
pt states when she arrived and urinated it was burning and she would like to have it checked out
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
[2024-04-30] MEDS: NITROFURANTOIN ER 100 MG CAPSULE PO (02:45)
[2024-04-30 02:48] LABS: Ictotest Urine Negative (Negative); Urine Volume 10mL (spun)
[2024-04-30 02:51] VITALS: BP 120/78; PULSE 116; RESP 16; O2SAT 98
[2024-04-30 02:53] LABS: Bacteria Urine Few (2-10); Mucus Urine 1+ (Negative); RBC Urine 1-5/HPF (0-5/HPF); Squamous Epithelial Cell Urine 0-1 /HPF (0-5/HPF); WBC Urine 10-30/HPF (0-5/HPF)
== END 2024-04-30 02:52 | disposition home or self-care (01) ==
PROVIDERS: Emergency Provider Emergency Medicine
DX: Z00.8 Encounter for other general examination (principal); R10.9 Unspecified abdominal pain; R30.0 Dysuria
CPT/HCPCS: 81003; 81015; 81025; 87086; 99283

== ENCOUNTER 2024-09-30 00:42 | Emergency (ER) | payer OTHER, SELFPAY ==
--- NOTE | 2024-09-30 00:48 | DI.US.S_ITS ---
PROCEDURE: US OB >= 14 WEEKS FETUS INDICATIONS: FIT for snf, eval OB on-call requests US OUTSIDE/PRIOR DATING DATA: Last menstrual period (LMP): Unknown. LMP-based estimated date of delivery (KANDY): Unknown. First dating scan (date and location): 09/30/2024. Estimated date of delivery (KANDY) from first dating scan: 02/07/2025. The calculations are made using the ultrasound KANDY of 02/07/2025. TECHNIQUE: Real-time scanning was performed of the fetus, with image documentation and biometric measurements. Endovaginal scanning: Not performed COMPARISON: None. FINDINGS: General: A single living intrauterine gestation is present. Presentation: Breech. Placenta: Placental position is anterior, without previa. Amniotic fluid index: 11 cm, normal range is 5-24 cm. Single deepest vertical pocket is 3.7 cm. heart rate: 152 beats per minute. Maternal cervical canal: 4 cm long. Normal lower limit is 2.5 cm. No funneling. biometrics: Biparietal diameter: 5.4 cm, 22 weeks 2 days Head circumference: 18.8 cm, 21 weeks 0 days Abdominal circumference: 16.4 cm, 21 weeks 3 days Femur length: 3.5 cm, 21 weeks 0 days Clinically estimated gestational age: Unknown Composite gestational age from present scan: 21 weeks 3 days Estimated weight: 412 g Anatomic survey: Neuro: Ventricles are non-dilated at less than 10 mm. Cisterna magna is normal at 3-11 mm. Cerebellum is normal in size and morphology. Nuchal skin fold: Normal at less than 6 mm between 14-21 weeks gestational age. Face: Nose and lips are normal. Facial profile not well seen. Spine: Lumbar spine is not well seen. Cervical and thoracic spine are within normal limits. Heart: 4-chambered heart is present, with normal ventricular outflow tracts. Diaphragm: Diaphragm is intact. Stomach: Left-sided stomach is present. Kidneys: Not well seen. Normal is less than 5 mm in 2nd trimester, less than 7 mm in 3rd trimester. Cord: 3-vessel cord has orthotopic insertion. Bladder: Normal in size. Extremities: All 4 extremities identified. IMPRESSION: 1. Quesada living intrauterine at 21 weeks 3 days based on today's ultrasound. 2. Normal placenta and amniotic fluid. 3. facial profile, lumbar spine, kidneys are not well seen. Otherwise normal anatomic survey. Recommend follow-up OB ultrasound. We strive to produce accurate, complete, and clear reports of imaging services. To assist us in improving patient care, this report was composed using standard report templates and voice recognition software. Therefore, it may contain abnormal punctuation, insertions and/or omissions. Occasional wrong-word or sound-alike substitutions may occur. Though we review the report and make efforts to correct it, we do recommend that the report be read carefully in proper context to recognize any text inaccuracies. Dictated by: Trever Rodriguez M.D. on 09/30/2024 at 2:02 Approved by: Trever Rodriguez M.D. on 09/30/2024 at 2:08
[2024-09-30 00:50] VITALS: BP 135/95; PULSE 111; RESP 24; TEMP 36.6; O2SAT 100; BMI 23.8
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
[2024-09-30 01:38] LABS: Add Manual Diff / Slide Review NO; Basophils Absolute Auto 0 /uL (0-100); Basophils Percent Auto 0.2 % (0-2); Eosinophils Absolute Auto 0 /uL (0-450); Eosinophils Percent Auto 0.4 % (2-4); Hemoglobin 10.2 g/dL (12.0-16.0); Lymphocytes Absolute Auto 1200 /uL (1100-4500); Lymphocytes Percent Auto 12.9 % (25-40); Mean Corpuscular HGB Conc 35.1 % (30-36); Mean Corpuscular Hemoglobin 30.6 PG (26-34); Mean Corpuscular Volume 87.2 fL (80-100); Monocytes Absolute Auto 500 /uL (0-900); Monocytes Percent Auto 5.1 % (3-14); Neutrophils Absolute Auto 7300 /uL (1500-7000); Neutrophils Percent Auto 81.4 % (50-75); Platelet Count 154 X10^3/uL (150-400); Red Blood Cell Count 3.33 X10^6/uL (4.0-5.2); Red Cell Distribution Width 14.2 % (11.6-14.8)
[2024-09-30 01:50] LABS: Alanine Aminotransferase 14 IU/L (<35); Albumin 3.5 g/dL (3.5-5.0); Alkaline Phosphatase 80 U/L (38-126); Aspartate Aminotransferase 22 IU/L (14-36); BUN Creatinine Ratio 16.4 (6-22); Bilirubin Total 0.2 mg/dL (0.2-1.3); Blood Urea Nitrogen 9 mg/dL (7-17); Calcium 8.2 mg/dL (8.4-10.2); Carbon Dioxide 22 mmol/L (22-32); Chloride 106 mmol/L (98-107); Estimated Glomerular Filt Rate > 60 mL/min (>60); Globulin 3.4 g/dL (1.7-4.1); Glucose 98 mg/dL (70-99); HEMOLYSIS < 15 (0-50); Potassium 3.7 mmol/L (3.4-5.1); Sodium 134 mmol/L (137-145); Total Protein 6.9 g/dL (6.3-8.2)
[2024-09-30 02:45] LABS: HIV 1 & 2 Ab/Ag 4th Gen Combo NEGATIVE (NEGATIVE); Hep C Virus Ab w/Reflex Quant REACTIVE s/c (NEGATIVE); Hepatitis B Surface Antigen NEGATIVE s/c (NEGATIVE); Rubella Antibody IgG 3.7 IU/mL (>15)
[2024-09-30 02:56] VITALS: BP 138/80; PULSE 104; RESP 22; O2SAT 97
[2024-10-01 04:40] LABS: RPR Screen Non Reactive (Non Reactive)
== END 2024-09-30 02:57 | disposition home or self-care (01) ==
PROVIDERS: Family Medicine; Emergency Provider Emergency Medicine; PCP Student in an Organized Health Care Education/Training Program
DX: O26.92 Pregnancy related conditions, unspecified, second trimester (principal); R10.9 Unspecified abdominal pain; Z3A.21 21 weeks gestation of pregnancy; V89.2XXA Person injured in unspecified motor-vehicle accident, traffic, initial encounter
CPT/HCPCS: 59050; 76811; 80053; 80055; 86803; 86900; 86901; 87389; 87522; 99281; 99284

== ENCOUNTER 2024-09-30 02:39 | Outpatient (CLI) | payer OTHER, SELFPAY | END 2024-09-30 03:34 | disposition home or self-care (01) | LOC: OB 11:17 | PROVIDERS: PCP Student in an Organized Health Care Education/Training Program; Referring Provider Family Medicine; Visit Provider Family Medicine | DX: O26.892 Other specified pregnancy related conditions, second trimester (principal); R10.9 Unspecified abdominal pain; O99.332 Smoking (tobacco) complicating pregnancy, second trimester; F17.200 Nicotine dependence, unspecified, uncomplicated; O99.322 Drug use complicating pregnancy, second trimester; F15.10 Other stimulant abuse, uncomplicated; Z3A.21 21 weeks gestation of pregnancy | CPT/HCPCS: G0378; G0379 ==